=== PATIENT | female | born 2005 | race Hispanic/Latino ===

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

== ENCOUNTER 2024-07-20 11:51 | Outpatient (CLI) | payer BC | END 2024-07-20 11:52 | disposition home or self-care (01) | LOC: ULT 11:51 | PROVIDERS: ATTEND Advanced Practice Midwife | DX: R74.8 Abnormal levels of other serum enzymes (principal); K76.0 Fatty (change of) liver, not elsewhere classified; R16.2 Hepatomegaly with splenomegaly, not elsewhere classified | CPT/HCPCS: 76700 ==

== ENCOUNTER 2025-06-16 07:38 | Outpatient (CLI) | payer BC | END 2025-06-16 07:39 | disposition home or self-care (01) | LOC: ULT 07:38 | PROVIDERS: ATTEND Nurse Practitioner Family | DX: E28.2 Polycystic ovarian syndrome (principal); N83.8 Other noninflammatory disorders of ovary, fallopian tube and broad ligament; K76.0 Fatty (change of) liver, not elsewhere classified | CPT/HCPCS: 76700; 76856 ==